=== PATIENT | female | born 2000 | race Caucasian/White ===

== ENCOUNTER → 2019-08-04 | Outpatient (CLI) | payer BC ==
[~2019-08-04] MED LIST: CARAFATE 1GM1 G PO
== END ==
LOC: COL.RAD 09:12
DX: R11.0 Nausea (principal); R10.11 Right upper quadrant pain

== ENCOUNTER 2019-08-05 17:08 | Emergency (ER) | payer BC ==
[~2019-08-05] VITALS: Ht 152.4 cm; Wt 52.3 kg
[2019-08-05 17:15] VITALS: TEMP 98.3
[2019-08-05 17:48] LABS: COLLECTION METHOD CLEAN CATCH
[2019-08-05 17:55] LABS: BASO # 0.1 (0.0-0.2); BASO % 1.2 % (0.0-2.0); EOS # 0.1 (0.0-0.7); EOS % 0.9 % (0-4.0); GRAN # 3.8 (1.4-6.5); GRAN % 57.7 % (42.2-75.2); HEMATOCRIT 43.1 % (35.0-45.0); HEMOGLOBIN 14.4 g/dl (12.0-15.0); LYMPH # 2.1 (1.2-3.4); LYMPH % 32.5 % (20.0-51.0); MEAN CELL VOLUME 93 fl (80.0-95.0); MEAN CORPUSCULAR HEMOGLOBIN 31 pg (26.0-32.0); MEAN CORPUSCULAR HGB CONC 33 g/dl (33.0-37.0); MEAN PLATELET VOLUME 10.1 fl (7.4-10.4); MONO # 0.5 (0.1-0.6); MONO % 7.2 % (1.7-9.3); PLATELET COUNT 261 K/mm3 (130-400); RED BLOOD COUNT 4.62 M/mm3 (4.10-5.30); REDCELL DISTRIBUTION WIDTH-CV 12.3 % (11.5-14.5)
[2019-08-05 17:57] LABS: PH 6 (5-8); URINE APPEARANCE Hazy; URINE BACTERIA None Seen /hpf; URINE BILIRUBIN Negative (NEGATIVE); URINE BLOOD 3+ (NEGATIVE); URINE COLOR Yellow; URINE GLUCOSE Negative (NEGATIVE); URINE KETONE Negative (NEGATIVE); URINE LEUKOCYTE ESTERASE Negative (NEGATIVE); URINE NITRATE Negative (NEGATIVE); URINE PROTEIN(semi-quant) Negative (NEGATIVE); URINE UROBILINOGEN Negative (NEGATIVE)
[2019-08-05 18:05] LABS: ALANINE AMINOTRANSFERASE < 6 U/L (9-52); ALBUMIN 4.8 gm/dL (3.5-5.0); ALKALINE PHOSPHATASE 76 U/L (50-136); ANION GAP 10 mmol/L (7-16); AST,SGOT 18 U/L (15-37); BILIRUBIN,TOTAL 0.5 mg/dL (0.0-1.0); BLOOD UREA NITROGEN 12 mg/dL (7-17); CALCIUM 9.7 mg/dL (8.4-10.2); CARBON DIOXIDE 27 mmol/L (22-30); CHLORIDE 103 mmol/L (98-107); GLUCOSE 87 mg/dL (74-106); LIPASE 80 U/L (23-300); POTASSIUM 4.1 mmol/L (3.4-5.0); SODIUM 140 mmol/L (137-145); TOTAL PROTEIN 8.2 gm/dL (6.4-8.2)
[2019-08-05 18:16] LABS: C-REACTIVE PROTEIN < 0.5 mg/dL (0.0-0.9)
[2019-08-05] MEDS ORDERED: CARAFATE 1GM1 G PO (18:49)
[2019-08-05 18:56] VITALS: BP 111/80; PULSE 66
== END 2019-08-05 18:58 | disposition home or self-care (01) ==
LOC: COL.ER 17:08
PROVIDERS: Nurse Practitioner
DX: R10.13 Epigastric pain (principal)
CPT/HCPCS: J1885; J2405; J7030

== ENCOUNTER 2019-11-19 19:50 | Emergency (ER) | payer BC ==
[~2019-11-19] VITALS: Ht 154.9 cm; Wt 50.0 kg
[2019-11-19 21:39] LABS: BASO # 0.1 (0.0-0.2); BASO % 0.7 % (0.0-2.0); EOS % 0.3 % (0-4.0); GRAN # 7.4 (1.4-6.5); GRAN % 64.7 % (42.2-75.2); HEMATOCRIT 40.9 % (37.0-47.0); HEMOGLOBIN 13.9 g/dl (12.5-16.0); LYMPH # 2.7 (1.2-3.4); LYMPH % 23.7 % (20.0-51.0); MEAN CELL VOLUME 92 fl (80.0-100.0); MEAN CORPUSCULAR HEMOGLOBIN 31 pg (27.0-31.0); MEAN CORPUSCULAR HGB CONC 34 g/dl (33.0-37.0); MEAN PLATELET VOLUME 9.7 fl (7.4-10.4); MONO # 1.2 (0.1-0.6); MONO % 10.3 % (1.7-9.3); PLATELET COUNT 268 K/mm3 (130-400); RED BLOOD COUNT 4.45 M/mm3 (4.10-5.30); REDCELL DISTRIBUTION WIDTH-CV 12.5 % (11.5-14.5)
[2019-11-19 21:55] LABS: ALANINE AMINOTRANSFERASE 12 U/L (9-52); ALBUMIN 4.9 gm/dL (3.5-5.0); ALKALINE PHOSPHATASE 85 U/L (50-136); ANION GAP 10 mmol/L (7-16); AST,SGOT 21 U/L (15-37); BILIRUBIN,TOTAL 1.3 mg/dL (0.0-1.0); BLOOD UREA NITROGEN 21 mg/dL (7-17); CALCIUM 9.8 mg/dL (8.4-10.2); CARBON DIOXIDE 26 mmol/L (22-30); CHLORIDE 101 mmol/L (98-107); CREATININE, serum 0.75 (0.52-1.25); GLUCOSE 83 mg/dL (74-106); POTASSIUM 4.2 mmol/L (3.4-5.0); SODIUM 137 mmol/L (137-145); TOTAL PROTEIN 8.2 gm/dL (6.4-8.2)
[2019-11-19 22:06] LABS: TROPONIN-I < 0.012 ng/mL (0.000-0.035)
[2019-11-20] MEDS ORDERED: PROZAC 20MG20 MG PO (04:38)
[2019-11-20 07:35] VITALS: BP 105/68; PULSE 56; TEMP 97.8
== END 2019-11-20 08:00 | disposition short-term general hospital (02) ==
LOC: COL.ER 19:50
PROVIDERS: Emergency Medicine
DX: J98.2 Interstitial emphysema (principal); F41.9 Anxiety disorder, unspecified; R07.89 Other chest pain; F17.290 Nicotine dependence, other tobacco product, uncomplicated
CPT/HCPCS: J1450; J2270; J2405; J2543; J7030; Q9967

== ENCOUNTER → 2020-04-04 | Outpatient (CLI) | payer BC ==
[~2020-04-04] MED LIST changes: +PROZAC 20MG20 MG PO
== END ==
LOC: COL.RAD 14:25
DX: R31.9 Hematuria, unspecified (principal)
CPT/HCPCS: Q9967

== ENCOUNTER → 2020-05-04 | Outpatient (CLI) | payer BC | LOC: ZCOL.LAB 14:36 | DX: M79.10 Myalgia, unspecified site (principal); R07.0 Pain in throat; Z20.828 Contact with and (suspected) exposure to other viral communicable diseases ==

== ENCOUNTER 2020-07-01 11:24 | Emergency (ER) | payer BC ==
[~2020-07-01] VITALS: Ht 154.9 cm; Wt 47.7 kg
[2020-07-01 11:27] VITALS: TEMP 98.7
[2020-07-01 11:55] LABS: COLLECTION METHOD CLEAN CATCH
[2020-07-01 12:05] LABS: MUCOUS Present /lpf; PH 7 (5-8); SQUAMOUS EPITHELIAL 20-50 /hpf; URINE APPEARANCE Hazy; URINE BACTERIA None Seen /hpf; URINE BILIRUBIN Negative (NEGATIVE); URINE BLOOD Negative (NEGATIVE); URINE COLOR Yellow; URINE GLUCOSE Negative (NEGATIVE); URINE KETONE Negative (NEGATIVE); URINE LEUKOCYTE ESTERASE 1+ (NEGATIVE); URINE NITRATE Negative (NEGATIVE); URINE PROTEIN(semi-quant) Negative (NEGATIVE); URINE RBC 0-2 /hpf; URINE UROBILINOGEN Negative (NEGATIVE)
[2020-07-01 13:10] LABS: BASO # 0.1 (0.0-0.2); BASO % 0.6 % (0.0-2.0); EOS % 0.4 % (0-4.0); GRAN # 7.1 (1.4-6.5); GRAN % 78.6 % (42.2-75.2); HEMATOCRIT 42.9 % (37.0-47.0); HEMOGLOBIN 14.9 g/dl (12.5-16.0); LYMPH # 1.4 (1.2-3.4); LYMPH % 15.6 % (20.0-51.0); MEAN CELL VOLUME 90 fl (80.0-100.0); MEAN CORPUSCULAR HEMOGLOBIN 31 pg (27.0-31.0); MEAN CORPUSCULAR HGB CONC 35 g/dl (33.0-37.0); MEAN PLATELET VOLUME 10.2 fl (7.4-10.4); MONO # 0.4 (0.1-0.6); MONO % 4.5 % (1.7-9.3); PLATELET COUNT 268 K/mm3 (130-400); RED BLOOD COUNT 4.75 M/mm3 (4.10-5.30); REDCELL DISTRIBUTION WIDTH-CV 12.2 % (11.5-14.5)
[2020-07-01 13:23] LABS: ALANINE AMINOTRANSFERASE 12 U/L (4-34); ALBUMIN 4.9 gm/dL (3.5-5.0); ALKALINE PHOSPHATASE 87 U/L (50-136); ANION GAP 11 mmol/L (7-16); AST,SGOT 23 U/L (15-37); BILIRUBIN,TOTAL 0.7 mg/dL (0.0-1.0); BLOOD UREA NITROGEN 13 mg/dL (7-17); CALCIUM 9.8 mg/dL (8.4-10.2); CARBON DIOXIDE 25 mmol/L (22-30); CHLORIDE 103 mmol/L (98-107); GLUCOSE 82 mg/dL (74-106); LIPASE 48 U/L (23-300); POTASSIUM 4.3 mmol/L (3.4-5.0); SODIUM 139 mmol/L (137-145); TOTAL PROTEIN 8.4 gm/dL (6.4-8.2)
[2020-07-01 13:33] LABS: C-REACTIVE PROTEIN < 0.5 mg/dL (0.0-0.9)
[2020-07-01] MEDS ORDERED: ZOFRAN 4MG T4 MG/TAB PO (15:53)
[2020-07-01] MEDS ORDERED: PRIL40 PO (15:53)
[2020-07-01] MEDS ORDERED: CARAFATE 1GM1 G PO (15:53)
[2020-07-01 16:15] VITALS: BP 128/64; PULSE 94
== END 2020-07-01 16:15 | disposition home or self-care (01) ==
LOC: COL.ER 11:24
PROVIDERS: Emergency Medicine
DX: R10.12 Left upper quadrant pain (principal); Z32.02 Encounter for pregnancy test, result negative
CPT/HCPCS: C9113; J0780; J7030